=== PATIENT | male | born 1960 | race African-American/Black ===

== ENCOUNTER 2017-02-23 21:19 | Inpatient (IN) | payer OTHER ==
[~2017-02-23] VITALS: Ht 182.9 cm; Wt 112.9 kg
[2017-02-23] MEDS ORDERED: FUROSEMIDE 40MG/4ML VIAL IVP ONE (22:00)
[2017-02-23 22:48] LABS: BASOPHILS % 0.4 % (0.0-2.0); EOSINOPHILS % 0.5 % (0.0-5.0); HEMATOCRIT. 24.3 % (42.0-52.0); HEMOGLOBIN. 7.8 g/dL (14.0-18.0); LYMPHOCYTES % 7.4 % (20.0-50.0); MEAN CORPUSCULAR HEMOGLOBIN 26.8 pg (28.0-32.0); MEAN CORPUSCULAR VOLUME 83.2 fL (80.0-94.0); MEAN PLATELET VOLUME 7.6 fl (7.4-10.4); MONOCYTES % 8.7 % (2.0-8.0); PLATELET 536 x1000/uL (130-400); RED BLOOD CELL COUNT 2.92 mill/uL (4.7-6.1); RED CELL DISTRIBUTION WIDTH 17.5 % (11.6-14.6)
[2017-02-23 22:52] LABS: INR 1.1; PROTHROMBIN TIME 11.4 sec (9.4-11.6)
[2017-02-23 23:02] LABS: CARBON DIOXIDE 26 mEq/L (21-32); CHLORIDE 101 mEq/L (98-107)
[2017-02-23] MEDS ORDERED: CEFTRIAXONE 1 G PREMIX 50 ML IV ONE (23:30)
[2017-02-23 23:52] LABS: CLARITY URINE CLOUDY (CLEAR); COLOR URINE YELLOW (YELLOW); GLUCOSE URINE NEGATIVE (NEGATIVE); KETONES URINE NEGATIVE (NEGATIVE); LEUKOCYTE ESTERASE URINE 1+ (NEGATIVE); NITRITE URINE POSITIVE (NEGATIVE); OCCULT BLOOD URINE NEGATIVE (NEGATIVE); PROTEIN URINE TRACE (NEGATIVE); SPECIFIC GRAVITY URINE 1.012 (1.005-1.030)
[2017-02-24] MEDS ORDERED: MAGNESIUM/ALUMINUM HYDROXIDE/SIMETHICONE 30ML UDC PO PRN (00:30)
[2017-02-24] MEDS ORDERED: ONDANSETRON HCL 4MG/2ML VIAL IV PRN (00:30)
[2017-02-24] MEDS ORDERED: DOCUSATE SODIUM 100MG CAPSULE PO PRN (00:30)
[2017-02-24] MEDS ORDERED: IPRATROPIUM/ALBUTEROL 0.5-3(2.5)MG/3ML NEB INH PRN (00:30)
[2017-02-24] MEDS ORDERED: CLONIDINE 0.1MG TABLET PO PRN (00:30)
[2017-02-24 01:07] LABS: CHLORIDE 99 mEq/L (98-107)
[2017-02-24 01:12] LABS: CARBON DIOXIDE 29 mEq/L (21-32); TOTAL IRON BINDING CAPACITY 139 ug/dL (250-450)
[2017-02-24 03:00] VITALS: BP 143/75
[2017-02-24 04:00] VITALS: BP 143/75
[2017-02-24] MEDS ORDERED: OXYB5TAB11 PO (04:12)
[2017-02-24] MEDS ORDERED: QUET50TA PO (04:12)
[2017-02-24] MEDS: PIPERACILLIN/TAZ 3.375G PREMIX 50 ML IV SCH ×2 (05:08→12:21)
[2017-02-24] MEDS ORDERED: MULT1TAB63 PO (05:54)
[2017-02-24] MEDS ORDERED: GABA800T97 PO (05:54)
[2017-02-24] MEDS ORDERED: BACL-141 PO (05:54)
[2017-02-24] MEDS ORDERED: POTASSIUM CHLORIDE 20MEQ TABLET SR PO NR (07:15)
[2017-02-24 07:18] LABS: *AMPHETAMINES SCREEN URINE NEGATIVE (NEGATIVE); *BARBITURATES SCREEN URINE NEGATIVE (NEGATIVE); *BENZODIAZEPINES SCREEN URINE NEGATIVE (NEGATIVE); *COCAINE SCREEN URINE NEGATIVE (NEGATIVE); CANNABINOID URINE SCREEN NEGATIVE (NEGATIVE); METHADONE URINE SCREEN NEGATIVE (NEGATIVE); OPIATES URINE SCREEN NEGATIVE (NEGATIVE); PHENCYCLIDINE URINE SCREEN NEGATIVE (NEGATIVE)
[2017-02-24 07:20] LABS: CREATINE KINASE 123 IU/L (39-308); TROPONIN I < 0.02 ng/mL (0.00-0.04)
[2017-02-24 08:00] VITALS: BP 111/65
[2017-02-24] MEDS: GABAPENTIN 400MG CAPSULE PO SCH ×3 (08:54→16:49)
[2017-02-24] MEDS: MULTIVITAMINS,THER W-MINERALS TABLET PO SCH (08:54)
[2017-02-24] MEDS: BACLOFEN 10MG TABLET PO SCH ×3 (08:55→16:49)
[2017-02-24] MEDS ORDERED: MEDICATION NOT ON FORMULARY EA (Gabapentin 800 MG) PO SCH (09:00)
[2017-02-24] MEDS ORDERED: MULTIVITAMIN PO SCH (09:00)
[2017-02-24 12:00] VITALS: BP 105/71
[2017-02-24 16:00] VITALS: BP 99/62
[2017-02-24 16:15] LABS: CREATINE KINASE 99 IU/L (39-308); CREATINE KINASE MB FRACTION 0.7 ng/mL (0.5-3.6); TROPONIN I < 0.02 ng/mL (0.00-0.04)
[2017-02-24] MEDS: QUETIAPINE FUMARATE 50MG TABLET PO SCH (16:48)
[2017-02-24] MEDS: ENOXAPARIN 120MG/0.8ML SYR SUBCUT SCH (18:19)
[2017-02-24 20:00] VITALS: BP 113/70
[2017-02-24] MEDS: ACETAMINOPHEN 325MG TABLET PO PRN (22:12)
[2017-02-24] MEDS: OXYBUTYNIN CHLORIDE 5MG TABLET PO SCH (22:13)
[2017-02-24] MEDS ORDERED: PIPERACILLIN/TAZ 3.375G PREMIX 50 ML IV SCH (23:45)
[2017-02-25] VITALS: BP 110/71
[2017-02-25] MEDS: PIPERACILLIN/TAZ 3.375G PREMIX 50 ML IV SCH ×5 (00:49→23:45)
[2017-02-25 04:00] VITALS: BP 99/53
[2017-02-25] MEDS: ENOXAPARIN 120MG/0.8ML SYR SUBCUT SCH ×2 (05:44→17:15)
[2017-02-25 06:46] LABS: BASOPHILS % 0.6 % (0.0-2.0); EOSINOPHILS % 1.5 % (0.0-5.0); HEMATOCRIT. 23.5 % (42.0-52.0); HEMOGLOBIN. 7.6 g/dL (14.0-18.0); LYMPHOCYTES % 10.9 % (20.0-50.0); MEAN CORPUSCULAR HEMOGLOBIN 27.2 pg (28.0-32.0); MEAN CORPUSCULAR VOLUME 84.3 fL (80.0-94.0); MEAN PLATELET VOLUME 7.4 fl (7.4-10.4); MONOCYTES % 9.3 % (2.0-8.0); NEUTROPHILS % 77.7 % (40.0-76.0); PLATELET 513 x1000/uL (130-400); RED BLOOD CELL COUNT 2.79 mill/uL (4.7-6.1); RED CELL DISTRIBUTION WIDTH 17.2 % (11.6-14.6)
[2017-02-25 07:40] LABS: CARBON DIOXIDE 30 mEq/L (21-32); CHLORIDE 102 mEq/L (98-107); HDL CHOLESTEROL 30 mg/dL (40-59); LDL CHOLESTEROL 97 mg/dL (5-100)
[2017-02-25 08:00] VITALS: BP 111/67
[2017-02-25] MEDS: MULTIVITAMINS,THER W-MINERALS TABLET PO SCH (09:21)
[2017-02-25] MEDS: BACLOFEN 10MG TABLET PO SCH ×3 (09:21→17:14)
[2017-02-25] MEDS: GABAPENTIN 400MG CAPSULE PO SCH ×3 (09:21→17:13)
[2017-02-25 12:00] VITALS: BP 118/67
[2017-02-25] MEDS: SILVER SULFADIAZINE 1% CREAM 50GM TOP SCH ×2 (13:13→21:14)
[2017-02-25 16:00] VITALS: BP 115/70
[2017-02-25] MEDS: QUETIAPINE FUMARATE 50MG TABLET PO SCH (17:13)
[2017-02-25 20:00] VITALS: BP 113/49
[2017-02-25] MEDS: OXYBUTYNIN CHLORIDE 5MG TABLET PO SCH (21:14)
[2017-02-25] MEDS: ACETAMINOPHEN 325MG TABLET PO PRN (23:44)
[2017-02-26] VITALS: BP 121/66
[2017-02-26 04:00] VITALS: BP 103/54
[2017-02-26] MEDS: PIPERACILLIN/TAZ 3.375G PREMIX 50 ML IV SCH ×4 (07:02→23:48)
[2017-02-26] MEDS: ENOXAPARIN 120MG/0.8ML SYR SUBCUT SCH ×2 (07:03→17:04)
[2017-02-26 07:48] LABS: CARBON DIOXIDE 30 mEq/L (21-32); CHLORIDE 105 mEq/L (98-107)
[2017-02-26 07:58] LABS: EOSINOPHILS % 1.6 % (0.0-5.0); HEMATOCRIT. 24.8 % (42.0-52.0); HEMOGLOBIN. 7.8 g/dL (14.0-18.0); MEAN CORPUSCULAR HEMOGLOBIN 26.6 pg (28.0-32.0); MEAN CORPUSCULAR VOLUME 84.2 fL (80.0-94.0); MONOCYTES % 7.4 % (2.0-8.0); PLATELET 623 x1000/uL (130-400); RED BLOOD CELL COUNT 2.95 mill/uL (4.7-6.1); RED CELL DISTRIBUTION WIDTH 17.3 % (11.6-14.6)
[2017-02-26 08:00] VITALS: BP 107/66
[2017-02-26] MEDS: BACLOFEN 10MG TABLET PO SCH ×3 (08:01→17:03)
[2017-02-26] MEDS: HYDROCODONE/ACETAMINOPHEN 5/325MG TABLET PO PRN ×2 (08:01→14:54)
[2017-02-26] MEDS: GABAPENTIN 400MG CAPSULE PO SCH ×3 (08:01→17:03)
[2017-02-26] MEDS: MULTIVITAMINS,THER W-MINERALS TABLET PO SCH (08:01)
[2017-02-26] MEDS: SILVER SULFADIAZINE 1% CREAM 50GM TOP SCH ×2 (08:02→21:08)
[2017-02-26 12:00] VITALS: BP 111/67
[2017-02-26 16:00] VITALS: BP 107/51
[2017-02-26 20:00] VITALS: BP 106/62
[2017-02-26] MEDS ORDERED: QUETIAPINE FUMARATE 50MG TABLET PO SCH (21:00)
[2017-02-26] MEDS: OXYBUTYNIN CHLORIDE 5MG TABLET PO SCH (21:09)
[2017-02-27] VITALS: BP 115/70
[2017-02-27 04:00] VITALS: BP 114/69
[2017-02-27] MEDS: PIPERACILLIN/TAZ 3.375G PREMIX 50 ML IV SCH ×3 (06:07→17:59)
[2017-02-27] MEDS: ENOXAPARIN 120MG/0.8ML SYR SUBCUT SCH ×2 (06:08→17:59)
[2017-02-27 06:23] LABS: BASOPHILS % 0.9 % (0.0-2.0); EOSINOPHILS % 1.6 % (0.0-5.0); HEMATOCRIT. 23.9 % (42.0-52.0); HEMOGLOBIN. 7.6 g/dL (14.0-18.0); LYMPHOCYTES % 13.1 % (20.0-50.0); MEAN CORPUSCULAR HEMOGLOBIN 26.9 pg (28.0-32.0); MEAN CORPUSCULAR VOLUME 84.4 fL (80.0-94.0); MEAN PLATELET VOLUME 7.6 fl (7.4-10.4); MONOCYTES % 6.8 % (2.0-8.0); NEUTROPHILS % 77.6 % (40.0-76.0); PLATELET 661 x1000/uL (130-400); RED BLOOD CELL COUNT 2.83 mill/uL (4.7-6.1); RED CELL DISTRIBUTION WIDTH 17.6 % (11.6-14.6)
[2017-02-27 06:52] LABS: CARBON DIOXIDE 27 mEq/L (21-32); CHLORIDE 106 mEq/L (98-107)
[2017-02-27 08:00] VITALS: BP 125/72
[2017-02-27] MEDS: SILVER SULFADIAZINE 1% CREAM 50GM TOP SCH ×2 (09:05→22:27)
[2017-02-27] MEDS: MULTIVITAMINS,THER W-MINERALS TABLET PO SCH (09:06)
[2017-02-27] MEDS: GABAPENTIN 400MG CAPSULE PO SCH ×3 (09:06→16:37)
[2017-02-27] MEDS: BACLOFEN 10MG TABLET PO SCH ×3 (09:06→16:36)
[2017-02-27 12:00] VITALS: BP 131/67
[2017-02-27 16:00] VITALS: BP 127/73
[2017-02-27 20:00] VITALS: BP 145/82
[2017-02-27] MEDS: MEROPENEM 500 MG in SODIUM CHLORIDE 0.9% 50 ML IV SCH (22:26)
[2017-02-27] MEDS: QUETIAPINE FUMARATE 50MG TABLET PO SCH (22:26)
[2017-02-27] MEDS: OXYBUTYNIN CHLORIDE 5MG TABLET PO SCH (22:26)
[2017-02-27] MEDS: HYDROCODONE/ACETAMINOPHEN 5/325MG TABLET PO PRN (22:27)
[2017-02-28] VITALS: BP 112/76
[2017-02-28 04:00] VITALS: BP 124/80
[2017-02-28 05:26] LABS: EOSINOPHILS % 1.9 % (0.0-5.0); HEMATOCRIT. 25.3 % (42.0-52.0); HEMOGLOBIN. 8.1 g/dL (14.0-18.0); LYMPHOCYTES % 14.3 % (20.0-50.0); MEAN CORPUSCULAR HEMOGLOBIN 26.9 pg (28.0-32.0); MEAN CORPUSCULAR VOLUME 84.2 fL (80.0-94.0); MEAN PLATELET VOLUME 7.3 fl (7.4-10.4); NEUTROPHILS % 76.8 % (40.0-76.0); PLATELET 715 x1000/uL (130-400); RED CELL DISTRIBUTION WIDTH 17.7 % (11.6-14.6)
[2017-02-28] MEDS: MEROPENEM 500 MG in SODIUM CHLORIDE 0.9% 50 ML IV SCH ×3 (05:59→22:11)
[2017-02-28] MEDS: ENOXAPARIN 120MG/0.8ML SYR SUBCUT SCH ×2 (06:00→18:07)
[2017-02-28 07:25] LABS: CARBON DIOXIDE 27 mEq/L (21-32); CHLORIDE 108 mEq/L (98-107)
[2017-02-28 08:00] VITALS: BP 123/78
[2017-02-28] MEDS: MULTIVITAMINS,THER W-MINERALS TABLET PO SCH (08:45)
[2017-02-28] MEDS: BACLOFEN 10MG TABLET PO SCH ×3 (08:45→17:18)
[2017-02-28] MEDS: GABAPENTIN 400MG CAPSULE PO SCH ×3 (08:45→17:18)
[2017-02-28] MEDS: SILVER SULFADIAZINE 1% CREAM 50GM TOP SCH ×2 (08:48→22:11)
[2017-02-28 12:00] VITALS: BP 114/58
[2017-02-28 16:00] VITALS: BP 118/73
[2017-02-28 20:00] VITALS: BP 124/81
[2017-02-28] MEDS: QUETIAPINE FUMARATE 50MG TABLET PO SCH (22:11)
[2017-02-28] MEDS: OXYBUTYNIN CHLORIDE 5MG TABLET PO SCH (22:11)
[2017-03-01] VITALS: BP 122/68
[2017-03-01 04:00] VITALS: BP 118/68
[2017-03-01] MEDS: MEROPENEM 500 MG in SODIUM CHLORIDE 0.9% 50 ML IV SCH ×3 (06:22→20:56)
[2017-03-01] MEDS: ENOXAPARIN 120MG/0.8ML SYR SUBCUT SCH ×2 (06:22→17:19)
[2017-03-01 07:16] LABS: EOSINOPHILS % 1.4 % (0.0-5.0); HEMATOCRIT. 25.6 % (42.0-52.0); HEMOGLOBIN. 8.2 g/dL (14.0-18.0); MEAN PLATELET VOLUME 7.8 fl (7.4-10.4); MONOCYTES % 5.5 % (2.0-8.0); NEUTROPHILS % 74.1 % (40.0-76.0); PLATELET 737 x1000/uL (130-400); RED BLOOD CELL COUNT 3.05 mill/uL (4.7-6.1); RED CELL DISTRIBUTION WIDTH 17.7 % (11.6-14.6)
[2017-03-01 07:47] LABS: CARBON DIOXIDE 26 mEq/L (21-32); CHLORIDE 108 mEq/L (98-107)
[2017-03-01 08:00] VITALS: BP 114/70
[2017-03-01] MEDS: GABAPENTIN 400MG CAPSULE PO SCH ×3 (08:21→17:18)
[2017-03-01] MEDS: MULTIVITAMINS,THER W-MINERALS TABLET PO SCH (08:21)
[2017-03-01] MEDS: BACLOFEN 10MG TABLET PO SCH ×3 (08:21→17:18)
[2017-03-01] MEDS: SILVER SULFADIAZINE 1% CREAM 50GM TOP SCH ×2 (08:34→20:55)
[2017-03-01 12:00] VITALS: BP 141/85
[2017-03-01 16:00] VITALS: BP 148/91
[2017-03-01 20:00] VITALS: BP 128/75
[2017-03-01] MEDS: QUETIAPINE FUMARATE 50MG TABLET PO SCH (20:55)
[2017-03-01] MEDS: OXYBUTYNIN CHLORIDE 5MG TABLET PO SCH (20:55)
[2017-03-02] VITALS: BP 123/75
[2017-03-02 04:00] VITALS: BP 136/80
[2017-03-02] MEDS: MULTIVITAMINS,THER W-MINERALS TABLET PO SCH (07:58)
[2017-03-02] MEDS: MEROPENEM 500 MG in SODIUM CHLORIDE 0.9% 50 ML IV SCH ×2 (07:58→13:31)
[2017-03-02] MEDS: ENOXAPARIN 120MG/0.8ML SYR SUBCUT SCH (07:58)
[2017-03-02] MEDS: BACLOFEN 10MG TABLET PO SCH ×2 (07:59→12:05)
[2017-03-02] MEDS: GABAPENTIN 400MG CAPSULE PO SCH ×2 (07:59→12:05)
[2017-03-02 08:00] VITALS: BP 123/78
[2017-03-02] MEDS: SILVER SULFADIAZINE 1% CREAM 50GM TOP SCH (11:28)
[2017-03-02 12:00] VITALS: BP 118/76
[2017-03-02 14:30] VITALS: BP 118/76
== END 2017-03-02 15:10 | DRG 383 ==
LOC: ER 21:19 → 6EST 23:59 → ENRESERV 02-24 01:10
PROVIDERS: ADMIT Internal Medicine; ATTEND Internal Medicine
DX: L03.115 Cellulitis of right lower limb (principal); E43 Unspecified severe protein-calorie malnutrition; J18.9 Pneumonia, unspecified organism; I82.411 Acute embolism and thrombosis of right femoral vein; G82.20 Paraplegia, unspecified; E87.5 Hyperkalemia; L03.116 Cellulitis of left lower limb; F20.9 Schizophrenia, unspecified; I10 Essential (primary) hypertension; N50.89 Other specified disorders of the male genital organs; N39.0 Urinary tract infection, site not specified; D64.9 Anemia, unspecified; F17.210 Nicotine dependence, cigarettes, uncomplicated; E87.6 Hypokalemia; D63.8 Anemia in other chronic diseases classified elsewhere; D75.89 Other specified diseases of blood and blood-forming organs; N31.9 Neuromuscular dysfunction of bladder, unspecified; Z79.01 Long term (current) use of anticoagulants; Z79.899 Other long term (current) drug therapy
CPT/HCPCS: 36415; 51702; 71010; 80048; 80053; 80061; 80305; 81001; 82270; 82550; 82553; 82728; 83540; 83550; 83605; 83880; 84443; 84484; 85025; 85044; 85610; 87040; 87077; 87086; 87186; 93005; 93923; 93970; 96365; 96375; 99285; 99406; C1893; J0696; J1650; J1940; J2185; J2543; J7040; J7050; A4315

== ENCOUNTER 2017-04-30 13:25 | Emergency (ER) | payer MEDICAID, OTHER ==
[~2017-04-30] VITALS: Ht 177.8 cm; Wt 90.0 kg
[~2017-04-30 13:25] MED LIST: BACL-141 PO; GABA800T97 PO; MULT1TAB63 PO; OXYB5TAB11 PO; QUET50TA PO
[2017-04-30 17:00] VITALS: BP 136/102
== END 2017-04-30 17:35 | disposition home or self-care (01) ==
LOC: ER 13:26
DX: L89.302 Pressure ulcer of unspecified buttock, stage 2 (principal); L97.319 Non-pressure chronic ulcer of right ankle with unspecified severity; I10 Essential (primary) hypertension; F31.9 Bipolar disorder, unspecified; G82.20 Paraplegia, unspecified; W19.XXXA Unspecified fall, initial encounter; Y93.89 Activity, other specified; Y92.89 Other specified places as the place of occurrence of the external cause; Y99.8 Other external cause status
CPT/HCPCS: 99283

== ENCOUNTER 2017-05-03 17:55 | Emergency (ER) | payer MEDICAID ==
[~2017-05-03] VITALS: Ht 177.8 cm; Wt 89.0 kg
[2017-05-03 21:43] LABS: CLARITY URINE TURBID (CLEAR); COLOR URINE DARK YELLOW (YELLOW); GLUCOSE URINE NEGATIVE (NEGATIVE); KETONES URINE TRACE (NEGATIVE); LEUKOCYTE ESTERASE URINE 3+ (NEGATIVE); NITRITE URINE POSITIVE (NEGATIVE); OCCULT BLOOD URINE 1+ (NEGATIVE); PROTEIN URINE 2+ (NEGATIVE); SPECIFIC GRAVITY URINE 1.024 (1.005-1.030)
[2017-05-03 22:43] VITALS: BP 130/103
== END 2017-05-03 22:44 | disposition home or self-care (01) ==
LOC: ER 18:16
DX: L97.319 Non-pressure chronic ulcer of right ankle with unspecified severity (principal); L97.829 Non-pressure chronic ulcer of other part of left lower leg with unspecified severity; L98.429 Non-pressure chronic ulcer of back with unspecified severity; N39.0 Urinary tract infection, site not specified; I10 Essential (primary) hypertension; F31.9 Bipolar disorder, unspecified
CPT/HCPCS: 81001; 99283